=== PATIENT | female | born 1940 | race Caucasian/White ===

== ENCOUNTER 2019-04-06 00:05 | Emergency (ER) | payer MEDICARE ==
[2013-07-10 07:06] VITALS: BP 131/86
[2019-04-06 00:21] VITALS: BP 133/90
--- NOTE | 2019-04-06 13:56 | EDM.PDOC ---
ED HPI GENERAL MEDICAL PROBLEM - General Chief Complaint: General Stated Complaint: FALL/PAIN Time Seen by Provider: 04/06/19 00:25 - History of Present Illness INITIAL COMMENTS - FREE TEXT/NARRATIVE: This is a 78yo F here brought to the ER for a fall. She was found on the ground in her bedroom yelling. Per patient she was in bed and had gotten up to go to the bathroom without notifying staff and fell on her buttocks towards the right and was unable to get up. Staff came immediately as she was yelling. Onset: Sudden Duration: Minutes: Location: Reports: Other (buttocks) Quality: Reports: Ache Severity: Mild Improves with: Reports: None Worsens with: Reports: Movement Associated Symptoms: Reports: No Other Symptoms - Related Data Allergies Allergy/AdvReac Type Severity Reaction Status Date / Time fluticasone Allergy Cannot Verified 04/06/19 17:21 [From Advair Diskus] Remember orange Allergy Swollen Verified 04/06/19 17:21 Tongue salmeterol Allergy Cannot Verified 04/06/19 17:21 [From Advair Diskus] Remember morphine AdvReac Nausea and Verified 04/06/19 17:21 Vomiting Penicillins AdvReac Nausea and Verified 04/06/19 17:21 Vomiting Sulfa (Sulfonamide AdvReac Nausea Verified 04/06/19 17:21 Antibiotics) Home Meds: Home Meds Fluticasone Propionate [Flonase Allergy Relief] 1 spray NASBOTH DAILY 04/06/19 [ History] Fluticasone/Vilanterol [Breo Ellipta 100-25 MCG Inhalation Kit] 1 inh IH DAILY 04/06/19 [History] Levothyroxine 112 mcg PO ACBREAKFAST 04/06/19 [History] Lisinopril 5 mg PO DAILY 04/06/19 [History] Nystatin [Nyamyc] 1 applic TOP BID PRN 04/06/19 [History] Past Medical History HEENT History: Reports: Hard of Hearing, Impaired Vision Cardiovascular History: Reports: Heart Failure, Hypertension, SOB on Exertion Respiratory History: Reports: COPD, Pneumonia, Recurrent, SOB Gastrointestinal History: Reports: Chronic Constipation, GERD Genitourinary History: Reports: Renal Calculus, Urinary Incontinence, UTI, Recurrent 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: Musculoskeletal History: Reports: Osteoarthritis Neurological History: Reports: Alzheimers Disease, Migraines, Other (See Below) Other Neuro History: dementia Psychiatric History: Reports: Anxiety, Dementia Endocrine/Metabolic History: Reports: Hypothyroidism Other Endocrine/Metabolic History: thyroid med Hematologic History: Reports: None Immunologic History: Reports: None Oncologic (Cancer) History: Reports: None Dermatologic History: Reports: Other (See Below) Other Dermatologic History: dermatitis - Infectious Disease History Infectious Disease History: Reports: Chicken Pox - Past Surgical History Respiratory Surgical History: Reports: None GI Surgical History: Reports: Appendectomy, Cholecystectomy, Colonoscopy Female Surgical History: Reports: Hysterectomy, Tubal Ligation Neurological Surgical History: Reports: None Musculoskeletal Surgical History: Reports: Knee Replacement, Shoulder Surgery, Other (See Below) Other Musculoskeletal Surgeries/Procedures:: left ankle surgery Dermatological Surgical History: Reports: None Social & Family History - Family History Family Medical History: Noncontributory - Living Situation & Occupation Living situation: Reports: Assisted Living Occupation: Retired ED ROS GENERAL - Review of Systems Review Of Systems: ROS reveals no pertinent complaints other than HPI. ED EXAM, GENERAL - Physical Exam Exam: See Below Exam Limited By: No Limitations General Appearance: Alert, WD/WN, No Apparent Distress Eye Exam: Bilateral Eye: EOMI, PERRL Ears: Normal External Exam Nose: Normal Inspection Throat/Mouth: Normal Inspection Head: Atraumatic, Normocephalic Neck: Normal Inspection, Supple, Non-Tender Respiratory/Chest: No Respiratory Distress, Lungs Clear Cardiovascular: Normal Peripheral Pulses, Regular Rate, Rhythm Peripheral Pulses: 2+: Dorsalis Pedis (L), Dorsalis Pedis (R) GI/Abdominal: Normal Bowel Sounds Back Exam: Normal Inspection Extremities: Normal Inspection Neurological: Alert, CN II-XII Intact Skin Exam: Warm, Dry, Intact Course - Vital Signs Last Recorded V/S: Last Vital Signs Temp 36.6 C 04/06/19 00:20 Pulse 90 04/06/19 00:20 Resp 22 H 04/06/19 00:20 BP 133/90 04/06/19 00:20 Pulse Ox 97 04/06/19 00:20 Departure - Departure Time of Disposition: 01:00 Disposition: DC/Tfer to [facility] Condition: Good Clinical Impression: Fall at retirement Qualifiers: Encounter type: initial encounter Qualified Code(s): W19.XXXA - Unspecified fall, initial encounter; Y92.129 - Unspecified place in retirement as the place of occurrence of the external cause - Discharge Information Referrals: PCP,None [Primary Care Provider] - Forms: ED Department Discharge Additional Instructions: Monitor patient for any increased pain. May take Tylenol prn for pain for up to 5 days. Follow up at the clinic if pt is having increased pain. - Problem List & Annotations (1) Dementia SNOMED Code(s): 07703138 Code(s): F03.90 - UNSPECIFIED DEMENTIA WITHOUT BEHAVIORAL DISTURBANCE Status: Chronic Priority: Low Qualifiers: Dementia type: Alzheimer's disease (2) Fall at retirement SNOMED Code(s): 875132628 Code(s): W19.XXXA - UNSPECIFIED FALL, INITIAL ENCOUNTER; Y92.129 - UNSP PLACE IN DETENTION PLACE Status: Acute Priority: High Annotation/ Comment:: Full assessment and skeletal and muscular survey showing tenderness at right buttocks and bony prominence only on palpation. Patient movement at baseline with no tenderness. Reassess multiple times reaching the same assessment of tenderness with no muscular or skeletal injury. Qualifiers: Encounter type: initial encounter (3) Weakness SNOMED Code(s): 89315979 Code(s): R53.1 - WEAKNESS Status: Acute Onset Date: 03/22/16 Annotation /Comment:: 03/22/16 - 1. Weakness with hypoxia, 2. Possibly an ealry or low- grade sinus infection - Problem List Review Problem List Initiated/Reviewed/Updated: Yes - Assessment/Plan Plan: Patient to return to care center and return to ER or clinic for assessment if symptoms progress or return.
--- NOTE | 2019-04-08 14:01 | CRLCT ---
DATE OF SERVICE: 04/06/19 CLINICAL DATA: fall with low back pain and hip pain PELVIC CT: Multislice axial acquisition was performed. Axial images and sagittal and coronal reformations are reviewed. There is diffuse osteopenia. No acute fracture or dislocation. There are moderate osteoarthritic changes of both hip joints. There are degenerative changes involving the SI joints and symphysis pubis. There is degenerative disc disease at the L5-S1 level. There is a 3.3 cm oval shaped fluid density lesion in the left pelvis. The possibility of a cystic ovarian neoplasm should be considered. The patient is status post hysterectomy. There is diverticulosis of the sigmoid colon without diverticulitis. [id number] [facility]
== END 2019-04-06 00:42 ==
LOC: LB.ED 00:05
DX: M79.18 Myalgia, other site (principal); F03.90 Unspecified dementia, unspecified severity, without behavioral disturbance, psychotic disturbance, mood disturbance, and anxiety; R53.1 Weakness; I11.0 Hypertensive heart disease with heart failure; I50.9 Heart failure, unspecified; J44.9 Chronic obstructive pulmonary disease, unspecified; K21.9 Gastro-esophageal reflux disease without esophagitis; E03.9 Hypothyroidism, unspecified; W06.XXXA Fall from bed, initial encounter; Y92.129 Unspecified place in nursing home as the place of occurrence of the external cause; Z79.899 Other long term (current) drug therapy; Z88.8 Allergy status to other drugs, medicaments and biological substances; Z88.5 Allergy status to narcotic agent; Z91.048 Other nonmedicinal substance allergy status; Z88.2 Allergy status to sulfonamides; Z88.0 Allergy status to penicillin
CPT/HCPCS: 72192; 99284; 99284-25

== ENCOUNTER 2019-04-06 16:52 | Emergency (ER) | payer MEDICARE ==
[2013-07-10 07:06] VITALS: BP 131/86
[2019-04-06 17:21] VITALS: BP 133/97
--- NOTE | 2019-04-07 21:30 | EDM.PDOC ---
ED HPI GENERAL MEDICAL PROBLEM - General Chief Complaint: Respiratory Problem Stated Complaint: WEAKNESS Time Seen by Provider: 04/06/19 17:00 Source of Information: Reports: Patient History Limitations: Reports: No Limitations - History of Present Illness INITIAL COMMENTS - FREE TEXT/NARRATIVE: According to care center staff.Pt was found on the ground in her room. According to patient she uses wheelchair for ambulation. She went into her room and tried to stand up and shift herself into the bed and lost control and landed on the ground. She c/o weakness in her lower extremities and cannot bear her body weight. She does c/o both her hip hurting. According to care center staff she has fallen about 5 times in the past 1 wk. Also she has been weak in her legs for a while and she refuses to try physical therapy. Onset: Today Onset Date: 04/06/19 Location: Reports: Pelvis, Lower Extremity, Left Quality: Reports: Ache Severity: Mild Improves with: Reports: None Worsens with: Reports: None Associated Symptoms: Reports: Weakness. Denies: Confusion, Chest Pain, Cough, Diaphoresis, Fever/Chills, Headaches, Nausea/Vomiting, Rash, Seizure, Shortness of Breath, Syncope - Related Data Allergies Allergy/AdvReac Type Severity Reaction Status Date / Time fluticasone Allergy Cannot Verified 04/06/19 17:21 [From Advair Diskus] Remember orange Allergy Swollen Verified 04/06/19 17:21 Tongue salmeterol Allergy Cannot Verified 04/06/19 17:21 [From Advair Diskus] Remember morphine AdvReac Nausea and Verified 04/06/19 17:21 Vomiting Penicillins AdvReac Nausea and Verified 04/06/19 17:21 Vomiting Sulfa (Sulfonamide AdvReac Nausea Verified 04/06/19 17:21 Antibiotics) Home Meds: Home Meds Fluticasone Propionate [Flonase Allergy Relief] 1 spray NASBOTH DAILY 04/06/19 [ History] Fluticasone/Vilanterol [Breo Ellipta 100-25 MCG Inhalation Kit] 1 inh IH DAILY 04/06/19 [History] Levothyroxine 112 mcg PO ACBREAKFAST 04/06/19 [History] Lisinopril 5 mg PO DAILY 04/06/19 [History] Nystatin [Nyamyc] 1 applic TOP BID PRN 04/06/19 [History] Past Medical History HEENT History: Reports: Hard of Hearing, Impaired Vision Cardiovascular History: Reports: Heart Failure, Hypertension, SOB on Exertion Respiratory History: Reports: COPD, Pneumonia, Recurrent, SOB Gastrointestinal History: Reports: Chronic Constipation, GERD Genitourinary History: Reports: Renal Calculus, Urinary Incontinence, UTI, Recurrent 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: Musculoskeletal History: Reports: Osteoarthritis Neurological History: Reports: Alzheimers Disease, Migraines, Other (See Below) Other Neuro History: dementia Psychiatric History: Reports: Anxiety, Dementia Endocrine/Metabolic History: Reports: Hypothyroidism Other Endocrine/Metabolic History: thyroid med Hematologic History: Reports: None Immunologic History: Reports: None Oncologic (Cancer) History: Reports: None Dermatologic History: Reports: Other (See Below) Other Dermatologic History: dermatitis - Infectious Disease History Infectious Disease History: Reports: Chicken Pox - Past Surgical History Respiratory Surgical History: Reports: None GI Surgical History: Reports: Appendectomy, Cholecystectomy, Colonoscopy Female Surgical History: Reports: Hysterectomy, Tubal Ligation Neurological Surgical History: Reports: None Musculoskeletal Surgical History: Reports: Knee Replacement, Shoulder Surgery, Other (See Below) Other Musculoskeletal Surgeries/Procedures:: left ankle surgery Dermatological Surgical History: Reports: None Social & Family History - Family History Family Medical History: Noncontributory - Living Situation & Occupation Living situation: Reports: Assisted Living Occupation: Retired ED ROS GENERAL - Review of Systems Review Of Systems: See Below Constitutional: Denies: Fever, Chills HEENT: Denies: Ear Pain, Rhinitis, Throat Pain Respiratory: Denies: Shortness of Breath, Cough, Sputum Cardiovascular: Denies: Chest Pain, Lightheadedness Endocrine: Denies: Fatigue Musculoskeletal: Reports: Joint Pain, Muscle Pain Skin: Denies: Bruising, Pruritis, Rash Neurological: Reports: Weakness. Denies: Confusion, Dizziness, Headache, Numbness, Tingling, Difficulty Walking ED EXAM, GENERAL - Physical Exam Exam: See Below Exam Limited By: No Limitations General Appearance: Alert, No Apparent Distress, Obese, Other (short and obese- has truncal obesity) Eye Exam: Bilateral Eye: EOMI, PERRL Ears: Normal External Exam, Normal Canal, Hearing Grossly Normal, Normal TMs Ear Exam: Bilateral Ear: Auricle Normal, Canal Normal, TM normal Nose: Normal Inspection, Normal Mucosa, No Blood Throat/Mouth: Normal Inspection, Normal Lips, Normal Teeth, Normal Gums, Normal Oropharynx, Normal Voice, No Airway Compromise Head: Atraumatic, Normocephalic Neck: Normal Inspection, Supple, Non-Tender, Full Range of Motion Respiratory/Chest: No Respiratory Distress, Lungs Clear, Normal Breath Sounds, No Accessory Muscle Use, Chest Non-Tender Cardiovascular: Normal Peripheral Pulses, Regular Rate, Rhythm, No Edema, No Gallop, No JVD, No Murmur, No Rub Back Exam: Normal Inspection, Full Range of Motion. No: Paraspinal Tenderness, Vertebral Tenderness Extremities: Normal Inspection, Normal Range of Motion, Other (Pt is able to stnd on her lower extremities. She has good strenght in her legs and feet. She has proximal muscle weakness of pelvis.) Neurological: Alert, Oriented Course - Vital Signs Text/Narrative:: Pt has had recurrent falls. She has some tenderness over both hips. I did get Ct of the pelvis and hip to rule out any occult fracture. The CT is negative of fracture. Pt is able to weight bear and walk and change position with minimal help. My assumption is her central obesity is making her loose balance and her age too. she probably is loosing muscle mass with time. She will need to start physical therapy. I have discussed with patient and she agrees to try physical therapy. Last Recorded V/S: Last Vital Signs Temp 98.0 F 04/06/19 16:56 Pulse 87 04/06/19 16:56 Resp 20 04/06/19 16:56 BP 133/97 H 04/06/19 16:56 Pulse Ox 96 04/06/19 16:56 Departure - Departure Time of Disposition: 17:45 Disposition: Home, Self-Care 01 Condition: Fair Clinical Impression: Generalized weakness - Discharge Information *PRESCRIPTION DRUG MONITORING PROGRAM REVIEWED*: Not Applicable *COPY OF PRESCRIPTION DRUG MONITORING REPORT IN PATIENT IMELDA: Not Applicable Instructions: Fatigue, Weakness Referrals: PCP,None [Primary Care Provider] - Forms: ED Department Discharge Additional Instructions: Start working with physical therapy on Tuesday. Get help for transfers until you are feeling stronger. Use Tylenol and Motrin if you start having any pain. Remember to drink plenty of water and stay hydrated. - Problem List & Annotations (1) Weakness SNOMED Code(s): 26563599 Code(s): R53.1 - WEAKNESS Status: Acute Onset Date: 03/22/16 Annotation /Comment:: 03/22/16 - 1. Weakness with hypoxia, 2. Possibly an ealry or low- grade sinus infection - Problem List Review Problem List Initiated/Reviewed/Updated: Yes - Assessment/Plan Assessment:: Generalized weakness Plan: Pt has had recurrent falls. She has some tenderness over both hips. I did get Ct of the pelvis and hip to rule out any occult fracture. The CT is negative of fracture. Pt is able to weight bear and walk and change position with minimal help. My assumption is her central obesity is making her loose balance and her age too. she probably is loosing muscle mass with time. She will need to start physical therapy. I have discussed with patient and she agrees to try physical therapy.
== END 2019-04-06 17:45 | disposition home or self-care (01) ==
LOC: LB.ED 16:52
DX: R53.1 Weakness (principal); E03.9 Hypothyroidism, unspecified; I11.0 Hypertensive heart disease with heart failure; I50.9 Heart failure, unspecified; J44.9 Chronic obstructive pulmonary disease, unspecified; Z79.899 Other long term (current) drug therapy; Z88.8 Allergy status to other drugs, medicaments and biological substances
CPT/HCPCS: 99284

== ENCOUNTER 2019-07-05 13:27 | Emergency (ER) | payer MEDICARE ==
--- NOTE | 2019-07-05 14:27 | EDM.PDOC ---
ED HPI GENERAL MEDICAL PROBLEM - General Chief Complaint: General Stated Complaint: FALL AT HOME 07/05/19 Time Seen by Provider: 07/05/19 13:48 Source of Information: Reports: Patient, RN History Limitations: Reports: Other (short term memory disorder) - History of Present Illness INITIAL COMMENTS - FREE TEXT/NARRATIVE: [facility] resident and staff report pt was found on the floor and having left shoulder and left hip pain. No head injury. Pt states mild pain to shoulder and hip with deep palpation. Onset: Today Onset Date: 07/05/19 Location: Reports: Upper Extremity, Left, Other (left hip) Quality: Reports: Stabbing Severity: Mild Improves with: Reports: Immobilization Associated Symptoms: Reports: No Other Symptoms - Related Data Allergies Allergy/AdvReac Type Severity Reaction Status Date / Time fluticasone Allergy Cannot Verified 07/05/19 13:59 [From Advair Diskus] Remember orange Allergy Swollen Verified 07/05/19 13:59 Tongue salmeterol Allergy Cannot Verified 07/05/19 13:59 [From Advair Diskus] Remember morphine AdvReac Nausea and Verified 07/05/19 13:59 Vomiting Penicillins AdvReac Nausea and Verified 07/05/19 13:59 Vomiting Sulfa (Sulfonamide AdvReac Nausea Verified 07/05/19 13:59 Antibiotics) Home Meds: Home Meds Fluticasone Propionate [Flonase Allergy Relief] 1 spray NASBOTH DAILY 04/06/19 [ History] Fluticasone/Vilanterol [Breo Ellipta 100-25 MCG Inhalation Kit] 1 inh IH DAILY 04/06/19 [History] Levothyroxine 112 mcg PO ACBREAKFAST 04/06/19 [History] Lisinopril 5 mg PO DAILY 04/06/19 [History] Nystatin [Nyamyc] 1 applic TOP BID PRN 04/06/19 [History] Past Medical History HEENT History: Reports: Hard of Hearing, Impaired Vision Cardiovascular History: Reports: Heart Failure, Hypertension, SOB on Exertion Respiratory History: Reports: COPD, Pneumonia, Recurrent, SOB Gastrointestinal History: Reports: Chronic Constipation, GERD Genitourinary History: Reports: Renal Calculus, Urinary Incontinence, UTI, Recurrent 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: Musculoskeletal History: Reports: Osteoarthritis Neurological History: Reports: Alzheimers Disease, Migraines, Other (See Below) Other Neuro History: dementia Psychiatric History: Reports: Anxiety, Dementia Endocrine/Metabolic History: Reports: Hypothyroidism Other Endocrine/Metabolic History: thyroid med Hematologic History: Reports: None Immunologic History: Reports: None Oncologic (Cancer) History: Reports: None Dermatologic History: Reports: Other (See Below) Other Dermatologic History: dermatitis - Infectious Disease History Infectious Disease History: Reports: Chicken Pox - Past Surgical History Respiratory Surgical History: Reports: None GI Surgical History: Reports: Appendectomy, Cholecystectomy, Colonoscopy Female Surgical History: Reports: Hysterectomy, Tubal Ligation Neurological Surgical History: Reports: None Musculoskeletal Surgical History: Reports: Knee Replacement, Shoulder Surgery, Other (See Below) Other Musculoskeletal Surgeries/Procedures:: left ankle surgery Dermatological Surgical History: Reports: None Social & Family History - Family History Family Medical History: Noncontributory - Living Situation & Occupation Living situation: Reports: Assisted Living Occupation: Retired ED ROS GENERAL - Review of Systems Review Of Systems: See Below Constitutional: Denies: Fever, Chills HEENT: Denies: Other (no head injury) Respiratory: Denies: Shortness of Breath, Cough Cardiovascular: Reports: No Symptoms GI/Abdominal: Reports: No Symptoms Musculoskeletal: Reports: Shoulder Pain, Other (left hip pain) Skin: Reports: No Symptoms Neurological: Reports: Confusion ED EXAM, GENERAL - Physical Exam Exam: See Below Exam Limited By: Other (limited short term memory) General Appearance: Alert, No Apparent Distress Ears: Normal External Exam, Hearing Grossly Normal Ear Exam: Bilateral Ear: Auricle Normal, Canal Normal Nose: Normal Inspection Throat/Mouth: Normal Voice, No Airway Compromise Head: Atraumatic, Normocephalic Neck: Supple, Non-Tender, Full Range of Motion Respiratory/Chest: Lungs Clear, Normal Breath Sounds Cardiovascular: Regular Rate, Rhythm, No Edema GI/Abdominal: Normal Bowel Sounds, Soft, Non-Tender Extremities: Other (Mild pain to left shoulder and left hip with palpation, no pain while lying on ER cot.) Neurological: Alert, Oriented Psychiatric: Normal Affect, Normal Mood Course - Orders/Labs/Meds Orders: Active Orders 24 hr Category Date Time Status Hip Min 1V w Pelvis Lt [CR] Stat Exams 07/05/19 13:55 Taken Shoulder Comp Lt [CR] Stat Exams 07/05/19 13:55 Taken - Re-Assessments/Exams Free Text/Narrative Re-Assessment/Exam: 07/05/19 15:16 LE X-ray completed of left shoulder and left hip. Radiology read is pending. No acute dislocated fracture or dislocations noted. Departure - Departure Time of Disposition: 14:47 Disposition: Home, Self-Care 01 Condition: Good Clinical Impression: Left hip pain, Left shoulder pain Fall at [facility] Qualifiers: Encounter type: initial encounter Qualified Code(s): W19.XXXA - Unspecified fall, initial encounter - Discharge Information *PRESCRIPTION DRUG MONITORING PROGRAM REVIEWED*: Not Applicable *COPY OF PRESCRIPTION DRUG MONITORING REPORT IN PATIENT IMELDA: Not Applicable Referrals: PCP,None [Primary Care Provider] - Forms: ED Department Discharge Additional Instructions: Apply warm packs to L hip and shoulder every 4 hours for 20 minutes as needed for pain. - My Orders Last 24 Hours: My Active Orders 07/05/19 13:55 Hip Min 1V w Pelvis Lt [CR] Stat Shoulder Comp Lt [CR] Stat - Assessment/Plan Last 24 Hours: My Active Orders 07/05/19 13:55 Hip Min 1V w Pelvis Lt [CR] Stat Shoulder Comp Lt [CR] Stat Plan: fall at [facility] in [facility] room, x-ray completed and radiologist read is pending. No acute dislocation or dislocated fracture noted. Recommend rest, heat to area q 4 hour prn. Notify provider if pain worsens. May use Tylenol 650 mg PO qid as needed X 5 days.
--- NOTE | 2019-07-05 15:35 | CR ---
DATE OF SERVICE: 07/05/2019 CLINICAL DATA: Fall Pelvis and left hip: There is diffuse osteopenia. No acute fracture or dislocation. No lytic or blastic bone lesions. There are moderate osteoarthritic changes or both hip joints. Thank you for allowing us to participate in the care of your patient. Dictated and Authenticated by: Jamir Duncan MD 07/05/2019 3:11 PM Central Time ([place] & [place]) [place]
--- NOTE | 2019-07-05 15:38 | CR ---
DATE OF SERVICE: 07/05/2019 CLINICAL DATA: Fall Left Shoulder: No priors. There is diffuse osteopenia. There are osteoarthritic changes at the a.c. and glenohumeral joints. Ther is narrowing of the subacromial space suggesting a chronic rotator cuff injury. No acute fracture or dislocation. Thank you for allowing us to participate in the care of you patient. Dictated and Authenticated by: Jamir Duncan MD 07/05/2019 3:12 PM Central Time ([place] & [place]) [place]
== END 2019-07-05 14:47 | disposition home or self-care (01) ==
LOC: LB.ED 13:27
DX: M25.512 Pain in left shoulder (principal); M25.552 Pain in left hip; I11.0 Hypertensive heart disease with heart failure; I50.9 Heart failure, unspecified; J44.9 Chronic obstructive pulmonary disease, unspecified; E03.9 Hypothyroidism, unspecified; Z88.0 Allergy status to penicillin; Z88.1 Allergy status to other antibiotic agents; Z88.5 Allergy status to narcotic agent; Z91.018 Allergy to other foods; Z88.8 Allergy status to other drugs, medicaments and biological substances; Z88.2 Allergy status to sulfonamides; Z79.899 Other long term (current) drug therapy
CPT/HCPCS: 73030-LT; 73501-LT; 99283-25

== ENCOUNTER 2019-07-15 15:31 | Emergency (ER) | payer MEDICARE ==
[2019-07-15] MEDS ORDERED: Ibuprofen 400 MG Tab ONE (15:40)
--- NOTE | 2019-07-15 15:44 | EDM.PDOC ---
ED HPI GENERAL MEDICAL PROBLEM - General Chief Complaint: General Stated Complaint: fall Time Seen by Provider: 07/15/19 15:35 Source of Information: Reports: Patient, Other (Care center staff) History Limitations: Reports: No Limitations - History of Present Illness INITIAL COMMENTS - FREE TEXT/NARRATIVE: Pt was in the bathroom and was trying to shift to the commode and lost strength her leg and fell hurt her left hip and left shoulder. Happened just prior to arrival. Pt c/o pain in her shoulder , but does move her left arm. She can bear weight on her left hip, but c/o pain in her hip. Onset: Today Onset Date: 07/15/19 Onset Time: 15:25 Duration: Constant Location: Reports: Upper Extremity, Left, Lower Extremity, Left Quality: Reports: Ache Severity: Mild Improves with: Reports: None Worsens with: Reports: Movement Associated Symptoms: Denies: Confusion, Chest Pain, Cough, Diaphoresis, Fever/ Chills, Headaches, Loss of Appetite, Nausea/Vomiting, Rash, Seizure, Syncope, Weakness - Related Data Allergies Allergy/AdvReac Type Severity Reaction Status Date / Time fluticasone Allergy Cannot Verified 07/05/19 13:59 [From Advair Diskus] Remember orange Allergy Swollen Verified 07/05/19 13:59 Tongue salmeterol Allergy Cannot Verified 07/05/19 13:59 [From Advair Diskus] Remember morphine AdvReac Nausea and Verified 07/05/19 13:59 Vomiting Penicillins AdvReac Nausea and Verified 07/05/19 13:59 Vomiting Sulfa (Sulfonamide AdvReac Nausea Verified 07/05/19 13:59 Antibiotics) Home Meds: Home Meds Fluticasone Propionate [Flonase Allergy Relief] 1 spray NASBOTH DAILY 04/06/19 [ History] Fluticasone/Vilanterol [Breo Ellipta 100-25 MCG Inhalation Kit] 1 inh IH DAILY 04/06/19 [History] Levothyroxine 112 mcg PO ACBREAKFAST 04/06/19 [History] Lisinopril 5 mg PO DAILY 04/06/19 [History] Nystatin [Nyamyc] 1 applic TOP BID PRN 04/06/19 [History] Past Medical History HEENT History: Reports: Hard of Hearing, Impaired Vision Cardiovascular History: Reports: Heart Failure, Hypertension, SOB on Exertion Respiratory History: Reports: COPD, Pneumonia, Recurrent, SOB Gastrointestinal History: Reports: Chronic Constipation, GERD Genitourinary History: Reports: Renal Calculus, Urinary Incontinence, UTI, Recurrent 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: Musculoskeletal History: Reports: Osteoarthritis Neurological History: Reports: Alzheimers Disease, Migraines, Other (See Below) Other Neuro History: dementia Psychiatric History: Reports: Anxiety, Dementia Endocrine/Metabolic History: Reports: Hypothyroidism Other Endocrine/Metabolic History: thyroid med Hematologic History: Reports: None Immunologic History: Reports: None Oncologic (Cancer) History: Reports: None Dermatologic History: Reports: Other (See Below) Other Dermatologic History: dermatitis - Infectious Disease History Infectious Disease History: Reports: Chicken Pox - Past Surgical History Respiratory Surgical History: Reports: None GI Surgical History: Reports: Appendectomy, Cholecystectomy, Colonoscopy Female Surgical History: Reports: Hysterectomy, Tubal Ligation Neurological Surgical History: Reports: None Musculoskeletal Surgical History: Reports: Knee Replacement, Shoulder Surgery, Other (See Below) Other Musculoskeletal Surgeries/Procedures:: left ankle surgery Dermatological Surgical History: Reports: None Social & Family History - Family History Family Medical History: Noncontributory - Living Situation & Occupation Living situation: Reports: Assisted Living Occupation: Retired ED ROS GENERAL - Review of Systems Review Of Systems: See Below Constitutional: Denies: Fever, Chills HEENT: Denies: Rhinitis, Throat Pain Respiratory: Denies: Cough, Sputum Cardiovascular: Denies: Chest Pain, Lightheadedness GI/Abdominal: Denies: Abdominal Pain, Nausea, Vomiting Musculoskeletal: Reports: Shoulder Pain, Muscle Pain. Denies: Back Pain, Joint Pain, Joint Swelling Skin: Denies: Bruising, Pruritis, Rash, Wound ED EXAM, GENERAL - Physical Exam Exam: See Below Exam Limited By: No Limitations General Appearance: Alert, WD/WN, Mild Distress Eye Exam: Bilateral Eye: EOMI, PERRL Ears: Normal External Exam, Normal Canal, Hearing Grossly Normal, Normal TMs Ear Exam: Bilateral Ear: Auricle Normal, Canal Normal, TM normal Nose: Normal Inspection, Normal Mucosa, No Blood Throat/Mouth: Normal Inspection, Normal Lips, Normal Teeth, Normal Gums, Normal Oropharynx, Normal Voice, No Airway Compromise Head: Atraumatic, Normocephalic Neck: Normal Inspection, Supple, Non-Tender, Full Range of Motion Respiratory/Chest: No Respiratory Distress, Lungs Clear, Normal Breath Sounds, No Accessory Muscle Use, Chest Non-Tender Cardiovascular: Normal Peripheral Pulses, Regular Rate, Rhythm, No Edema, No Gallop, No JVD, No Murmur, No Rub Extremities: Normal Inspection, Normal Range of Motion, No Pedal Edema, Normal Capillary Refill, Other (Left lower extremity: There is no obvious swelling or deformity around the hip or leg. No brusising. Pt is able to stand on her feet, but c/o pain in her left hip when she stand. She can flex her thigh. Tender over the lateral aspect o the hip . Left upper extremity: no deormity or swelling. She does have good ROM around the shoulder. tender over the shoulder tip to palpation. no crepitus.) Course - Vital Signs Text/Narrative:: Pt's X-ray of the left hip and left shoulder appear normal. No concerns of fracture or dislocation. She has soft tissue injury to the hip and shoulder. advised cold compresses 2-3 times today followed by warm compresses from tomorrow.Motrin 400mg 3 times daily with food for pain.She should be okay to walk and transfer with assistance. - Orders/Labs/Meds Orders: Active Orders 24 hr Category Date Time Status Hip Min 2V or 3V Lt [CR] Stat Exams 07/15/19 15:37 Ordered Shoulder Comp Lt [CR] Stat Exams 07/15/19 15:36 Ordered Departure - Departure Time of Disposition: 16:15 Disposition: DC/Tfer to [facility] Condition: Fair Clinical Impression: Left hip pain, Left shoulder pain - Discharge Information *PRESCRIPTION DRUG MONITORING PROGRAM REVIEWED*: Not Applicable *COPY OF PRESCRIPTION DRUG MONITORING REPORT IN PATIENT IMELDA: Not Applicable Forms: ED Department Discharge Additional Instructions: Pt's X-ray of the left hip and left shoulder appear normal. No concerns of fracture or dislocation. She has soft tissue injury to the hip and shoulder. advised cold compresses 2-3 times today followed by warm compresses from tomorrow.Motrin 400mg 3 times daily with food for pain.She should be okay to walk and transfer with assistance. - Problem List & Annotations (1) [facility] Code(s): 639389214 Code(s): W19.XXXA - UNSPECIFIED FALL, INITIAL ENCOUNTER; Y92.129 - UNSP PLACE IN LONG TERM PLACE Status: Acute Priority: High Annotation/ Comment:: Full assessment and skeletal and muscular survey showing tenderness at right buttocks and bony prominence only on palpation. Patient movement at baseline with no tenderness. Reassess multiple times reaching the same assessment of tenderness with no muscular or skeletal injury. Qualifiers: Encounter type: initial encounter Qualified Code(s): W19.XXXA - Unspecified fall, initial encounter; Y92.129 - Unspecified place in [facility] as the place of occurrence of the external cause (2) Left hip pain SNOMED Code(s): 57551387 Code(s): M25.552 - PAIN IN LEFT HIP Status: Acute (3) Left shoulder pain SNOMED Code(s): 46566388, 68223899 Code(s): M25.512 - PAIN IN LEFT SHOULDER Status: Acute - Problem List Review Problem List Initiated/Reviewed/Updated: Yes - My Orders Last 24 Hours: My Active Orders 07/15/19 15:36 Shoulder Comp Lt [CR] Stat 07/15/19 15:37 Hip Min 2V or 3V Lt [CR] Stat - Assessment/Plan Last 24 Hours: My Active Orders 07/15/19 15:36 Shoulder Comp Lt [CR] Stat 07/15/19 15:37 Hip Min 2V or 3V Lt [CR] Stat Assessment:: Left hip and shoulder pain s/p fall Plan: Pt's X-ray of the left hip and left shoulder appear normal. No concerns of fracture or dislocation. She has soft tissue injury to the hip and shoulder. advised cold compresses 2-3 times today followed by warm compresses from tomorrow.Motrin 400mg 3 times daily with food for pain.She should be okay to walk and transfer with assistance.
[2019-07-15 17:34] VITALS: BP 130/100; PULSE 80
--- NOTE | 2019-07-15 18:08 | CR ---
DATE OF SERVICE: 07/15/19 CLINICAL DATA: fall with left hip pain LEFT HIP: There is mild osteoarthritic change of the left hip joint. No acute fracture or dislocation. No lytic or blastic bone lesions. [id number] MTDD
--- NOTE | 2019-07-15 18:10 | CR ---
DATE OF SERVICE: 07/15/19 CLINICAL DATA: shoulder pain LEFT SHOULDER: There is diffuse osteopenia. There are osteoarthritic changes of the AC and glenohumeral joints. No acute abnormalities. [id number] MTDD
== END 2019-07-15 16:15 ==
LOC: LB.ED 15:31
DX: M25.512 Pain in left shoulder (principal); M25.552 Pain in left hip; I11.0 Hypertensive heart disease with heart failure; I50.9 Heart failure, unspecified; E03.9 Hypothyroidism, unspecified; Z88.2 Allergy status to sulfonamides; Z88.5 Allergy status to narcotic agent; Z88.8 Allergy status to other drugs, medicaments and biological substances; Z91.018 Allergy to other foods; Z88.0 Allergy status to penicillin; Z79.899 Other long term (current) drug therapy
CPT/HCPCS: 73030-LT; 73502-LT; 99282; 99284; A9270-GY

== ENCOUNTER 2019-09-27 15:39 | Emergency (ER) | payer MEDICARE ==
[2019-09-27 15:57] VITALS: BP 157/113; PULSE 110
--- NOTE | 2019-09-27 23:11 | ER ---
REASON FOR EMERGENCY ROOM VISIT: Hematoma, left forehead. HISTORY: This 79-year-old intermediate resident was sent over after she apparently slipped off her chair and struck her left forehead on the floor sustaining a hematoma. She was sent over for evaluation. She denies any loss of consciousness. Has not had any visual changes. Denies any numbness, weakness, or paralysis. She has not had any nausea. She states that it hurts over the area of the hematoma when she touches it. PAST MEDICAL HISTORY: Reviewed. See EMR. MEDICATIONS: Reviewed. See EMR. ALLERGIES: REVIEWED. SEE EMR. REVIEW OF SYSTEMS: Pertinent positives and negatives as noted in the HPI. PHYSICAL EXAMINATION: GENERAL: She is alert, appropriate, and in no acute distress. VITAL SIGNS: She is afebrile, heart rate is 110, blood pressure is 157/113, and O2 sats 93% to 94%. She is afebrile. HEENT: She has an egg-shaped hematoma that measures about approximately 5 x 3 cm over her left forehead area just below her hairline. There is no palpable bony crepitus. It is somewhat tender to touch as one might imagine. TMs are normal. Oropharynx is normal. Pupils equal, round, and reactive to light. Extraocular muscles intact. Occlusion is normal. NEUROLOGIC: Cranial nerves 2 through 12 are intact. Deep tendon reflexes symmetrical. Muscle strength, bulk, and tone are normal and symmetrical. Sensory examination normal to touch. Gait and station are not tested. IMPRESSION: Hematoma, left forehead area, subcutaneous. No evidence of traumatic brain injury at this time. PLAN: She will be returning to the intermediate. They can apply ice to it to minimize the swelling and to help with pain relief. Also, ibuprofen and Tylenol as needed can be given. If they notice any changes in her neurologic status or there are any questions or concerns, they should send her back to us for another evaluation. The patient understands and agrees. All questions were answered. MARIELENA /[id number]
== END 2019-09-27 16:15 | disposition home or self-care (01) ==
LOC: LB.ED 15:39
DX: S00.83XA Contusion of other part of head, initial encounter (principal); W07.XXXA Fall from chair, initial encounter; W22.8XXA Striking against or struck by other objects, initial encounter
CPT/HCPCS: 99283

== ENCOUNTER 2019-12-09 13:21 | Emergency (ER) | payer MEDICARE ==
[~2019-12-09 13:21] MED LIST: Albuterol 0.083% 2.5 MG/3 ML Neb Soln ONE; Azithromycin 250 MG Tab ONE
[2019-12-09 13:29] VITALS: BP 137/90; PULSE 103
--- NOTE | 2019-12-09 19:14 | ER ---
REASON FOR EMERGENCY ROOM VISIT: Congestion and wheezing. HISTORY: This 79-year-old resident of the assisted here was sent over by the assisted staff because they noticed that she had what appeared to be some increased respiratory congestion and some wheezing on examination. She has not been coughing excessively according to the patient and she does have a history of COPD, which dates back several years ago. Her COPD is said to be severe, but she is not on systemic steroids for this. She has not been febrile as of late. The patient states that she feels well at this time. She indicates that her respiratory symptoms are essentially chronic and have been unchanged for quite some time. The patient denies any shortness of breath at this time and her appetite has been good. In fact, she is complaining about being hungry at this time. PAST MEDICAL HISTORY: 1. COPD, severe. 2. Anxiety. 3. Hypothyroidism. 4. History of congestive heart failure. 5. Anxiety. 6. History of pneumonia. 7. Weakness. 8. History of hypoxia. 9. Dementia. 10.History of multiple falls. MEDICATIONS: Reviewed. Please see electronic medical record. She is on Flonase nasal spray and inhaler consisting of fluticasone and vilanterol. Other medications are as listed in her EMR and these were reviewed. ALLERGIES: FLUTICASONE, ORANGE, SALMETEROL, MORPHINE, AND PENICILLIN. REVIEW OF SYSTEMS: Pertinent positives and negatives as listed in the HPI. PHYSICAL EXAMINATION: GENERAL: She is reasonably alert and in no acute distress. VITAL SIGNS: She is afebrile, heart rate is 103, blood pressure 137/90, respiratory rate is 22, O2 sats 92% on room air. HEENT: Oropharynx is normal. No conjunctivitis is noted. NECK: No JVD. No adenopathy. CHEST: She does have rare scattered rhonchi on the left side, but I was unable to hear any real wheezing at this time. CARDIAC: Regular rate without murmur. ABDOMEN: Soft and nontender. EXTREMITIES: No cyanosis. IMPRESSION: Early acute exacerbation of chronic obstructive pulmonary disease. PLAN: I ordered DuoNeb inhalers on a p.r.n. basis should the nurses feel it might be helpful. In addition to this, I started her on a Z-Kevin. This was explained to the patient and in spite of her dementia, she seems to understand. She will be returning to the assisted. FRANKIE/LOUANN /[id number]
== END 2019-12-09 14:10 ==
LOC: LB.ED 13:21
DX: J44.1 Chronic obstructive pulmonary disease with (acute) exacerbation (principal); Z88.8 Allergy status to other drugs, medicaments and biological substances; Z88.0 Allergy status to penicillin; Z91.018 Allergy to other foods
CPT/HCPCS: 99284; A9270-GY

== ENCOUNTER 2020-09-05 09:20 | Emergency (ER) | payer MEDICARE ==
[2020-09-05] MEDS ORDERED: Sodium Chloride 0.9% 1,000 ML IV SCH (10:00)
[2020-09-05 10:24] VITALS: BP 134/105; PULSE 80
--- NOTE | 2020-09-05 11:00 | EDM.PDOC ---
ED HPI GENERAL MEDICAL PROBLEM - General Chief Complaint: General Stated Complaint: WEAKNESS Time Seen by Provider: 09/05/20 09:30 Source of Information: Reports: Patient, Skilled Nursing Records - History of Present Illness INITIAL COMMENTS - FREE TEXT/NARRATIVE: Patient is an 80 y/o female who presents with generalized weakness from the senior living. COVID yesterday was negative. She doesn't complain of anything and just wants to be left alone. No fever, abd pain, N/V/D, chest pain, or shortness of breath. Patient with baseline weakness needing assist and dementia. Generalized Pain Score (Numeric/FACES): 4 - Related Data Allergies Allergy/AdvReac Type Severity Reaction Status Date / Time fluticasone Allergy Cannot Verified 12/09/19 15:59 [From Advair Diskus] Remember orange Allergy Swollen Verified 12/09/19 15:59 Tongue salmeterol Allergy Cannot Verified 12/09/19 15:59 [From Advair Diskus] Remember morphine AdvReac Nausea and Verified 12/09/19 15:59 Vomiting Penicillins AdvReac Nausea and Verified 12/09/19 15:59 Vomiting Sulfa (Sulfonamide AdvReac Nausea Verified 12/09/19 15:59 Antibiotics) Home Meds: Home Meds Fluticasone Propionate [Flonase Allergy Relief] 1 spray NASBOTH DAILY 04/06/19 [History] Fluticasone/Vilanterol [Breo Ellipta 100-25 MCG Inhalation Kit] 1 inh IH DAILY 04/06/19 [History] Lisinopril 5 mg PO DAILY 04/06/19 [History] Calcium Carbonate [Tums] 500 mg PO DAILY 12/09/19 [History] Cholecalciferol (Vitamin D3) [Vitamin D3] 2,000 units PO DAILY 12/09/19 [History] Guaifenesin/Pseudoephedrne HCl [Mucinex D ER 600-60 mg Tablet] 600 mg PO DAILY 12/09/19 [History] Levothyroxine Sodium [Levo-T] 100 mcg PO DAILY 12/09/19 [History] Nystatin 1 applic TD BID 12/09/19 [History] Topiramate 12.5 mg PO BEDTIME 12/09/19 [History] Past Medical History HEENT History: Reports: Hard of Hearing, Impaired Vision Cardiovascular History: Reports: Heart Failure, Hypertension, SOB on Exertion Respiratory History: Reports: COPD, Pneumonia, Recurrent, SOB Gastrointestinal History: Reports: Chronic Constipation, GERD Genitourinary History: Reports: Renal Calculus, Urinary Incontinence, UTI, Recurrent 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: Musculoskeletal History: Reports: Osteoarthritis Neurological History: Reports: Alzheimers Disease, Migraines, Other (See Below) Other Neuro History: dementia Psychiatric History: Reports: Anxiety, Dementia Endocrine/Metabolic History: Reports: Hypothyroidism Other Endocrine/Metabolic History: thyroid med Hematologic History: Reports: None Immunologic History: Reports: None Oncologic (Cancer) History: Reports: None Dermatologic History: Reports: Other (See Below) Other Dermatologic History: dermatitis - Infectious Disease History Infectious Disease History: Reports: Chicken Pox - Past Surgical History HEENT Surgical History: Reports: Other (See Below) Respiratory Surgical History: Reports: None GI Surgical History: Reports: Appendectomy, Cholecystectomy, Colonoscopy Female Surgical History: Reports: Hysterectomy, Tubal Ligation Neurological Surgical History: Reports: None Musculoskeletal Surgical History: Reports: Knee Replacement, Shoulder Surgery, Other (See Below) Other Musculoskeletal Surgeries/Procedures:: left ankle surgery Dermatological Surgical History: Reports: None Social & Family History - Family History Family Medical History: No Pertinent Family History - Tobacco Use Tobacco Use Status *Q: Former Tobacco User Used Tobacco, but Quit: Yes Month/Year Tobacco Last Used: 2009 - Caffeine Use Caffeine Use: Reports: Coffee - Recreational Drug Use Recreational Drug Use: No - Living Situation & Occupation Living situation: Reports: Assisted Living Occupation: Retired ED ROS GENERAL - Review of Systems Review Of Systems: See Below Constitutional: Reports: Weakness HEENT: Reports: No Symptoms Respiratory: Reports: No Symptoms Cardiovascular: Reports: No Symptoms GI/Abdominal: Reports: No Symptoms Musculoskeletal: Reports: No Symptoms Skin: Reports: No Symptoms Neurological: Reports: No Symptoms ED EXAM, GENERAL - Physical Exam Exam: See Below Exam Limited By: Other (Patient is a bit combative when being moved for CXR, but I was told by nursing that this is normal behavior) General Appearance: Alert, No Apparent Distress Throat/Mouth: Normal Voice, Other (tongue and lips are dry) Neck: Normal Inspection, Supple, Non-Tender Respiratory/Chest: No Respiratory Distress, Lungs Clear, Normal Breath Sounds, No Accessory Muscle Use, Chest Non-Tender Cardiovascular: Normal Peripheral Pulses, Regular Rate, Rhythm, No Edema, No Murmur GI/Abdominal: Normal Bowel Sounds, Soft, Non-Tender, No Distention Extremities: Normal Inspection, Normal Range of Motion, No Pedal Edema, Normal Capillary Refill Neurological: Alert, Oriented Psychiatric: Normal Affect Skin Exam: Warm, Dry, Intact, Normal Color, No Rash, Other (patient appears dehydrated) Course - Vital Signs Text/Narrative:: Lab work hemolyzed, but CBC and lactic were normal. Patient refusing anymore lab work and urine. She states she just wants to go home. Discussed with daughter and she stated that patient has made comments about just wanting to and will see her today in the Care Center. 1 L NS given to patient, which perked her up and her tongue and lips were moist. Last Recorded V/S: Last Vital Signs Temp 36.2 C 09/05/20 09:30 Pulse 80 09/05/20 09:30 Resp 20 09/05/20 09:30 BP 134/105 H 09/05/20 09:30 Pulse Ox 98 09/05/20 09:30 - Orders/Labs/Meds Orders: Active Orders 24 hr Category Date Time Status Chest 1V Frontal [CR] Stat Exams 09/05/20 09:51 Taken COMPREHENSIVE METABOLIC PN,CMP [CHEM] Stat Lab 09/05/20 09:51 Ordered TSH ULTRASENSITIVE [CHEM] Stat Lab 09/05/20 09:52 Ordered UA RFX SERAFIN AND CULT IF INDIC [URIN] Stat Lab 09/05/20 09:51 Ordered Sodium Chloride 0.9% [Normal Saline] 1,000 ml Med 09/05/20 10:00 Active IV ASDIRECTED Medication Orders Sodium Chloride (Normal Saline) 1,000 mls @ 1,000 mls/hr IV ASDIRECTED VIRY Last Admin: 09/05/20 09:47 Dose: 1,000 mls/hr Documented by: LARISA Labs: Laboratory Tests 09/05/20 09/05/20 Range/Units 09:40 09:51 WBC 8.7 D (4.0-11.0) K/uL RBC 5.02 (3.80-5.80) M/uL Hgb 15.0 (11.5-16.5) g/dL Hct 47.0 (37.0-47.0) % MCV 94 (76-96) fL MCH 29.9 (27.0-32.0) pg MCHC 31.9 (31.0-35.0) g/dL RDW 13.1 (11.0-16.0) % Plt Count 224 (150-500) K/uL MPV 10.0 (6.0-10.0) fL Neut % (Auto) 75.5 H (45.0-70.0) % Lymph % (Auto) 16.5 L (20.0-40.0) % [place] % (Auto) 6.3 (3.0-10.0) % Eos % (Auto) 1.4 (1.0-5.0) % Baso % (Auto) 0.3 (0.0-0.5) % Neut # (Auto) 6.55 (2.00-7.50) K/uL Lymph # (Auto) 1.43 L (1.50-4.00) K/uL [place] # (Auto) 0.55 (0.20-0.80) K/uL Eos # (Auto) 0.12 (0.04-0.40) K/uL Baso # (Auto) 0.03 (0.02-0.10) K/uL Lactic Acid 1.1 (0.4-2.0) mmol/L Meds: Medications Generic Name Dose Route Start Last Admin Trade Name Freq PRN Reason Stop Dose Admin Sodium Chloride 1,000 mls @ 1,000 mls/hr 09/05/20 10:00 09/05/20 09:47 Normal Saline IV 1,000 mls/hr ASDIRECTED VIRY Administration Departure - Departure Time of Disposition: 11:00 Disposition: DC/Tfer to [facility] 03 Condition: Good Clinical Impression: Dehydration - Discharge Information *PRESCRIPTION DRUG MONITORING PROGRAM REVIEWED*: Not Applicable *COPY OF PRESCRIPTION DRUG MONITORING REPORT IN PATIENT IMELDA: Not Applicable Referrals: PCP,None [Primary Care Provider] - Additional Instructions: Verbal order for a one time ativan 1 mg PO prn for agitation. Sepsis Event Note (ED) - Evaluation Sepsis Screening Result: No Definite Risk - Focused Exam Vital Signs: Vital Signs Temp Pulse Resp BP Pulse Ox 09/05/20 09:30 36.2 C 80 20 134/105 H 98 - My Orders Last 24 Hours: My Active Orders 09/05/20 09:51 Chest 1V Frontal [CR] Stat COMPREHENSIVE METABOLIC PN,CMP [CHEM] Stat UA RFX SERAFIN AND CULT IF INDIC [URIN] Stat 09/05/20 09:52 TSH ULTRASENSITIVE [CHEM] Stat 09/05/20 10:00 Sodium Chloride 0.9% [Normal Saline] 1,000 ml IV ASDIRECTED - Assessment/Plan Last 24 Hours: My Active Orders 09/05/20 09:51 Chest 1V Frontal [CR] Stat COMPREHENSIVE METABOLIC PN,CMP [CHEM] Stat UA RFX SERAFIN AND CULT IF INDIC [URIN] Stat 09/05/20 09:52 TSH ULTRASENSITIVE [CHEM] Stat 09/05/20 10:00 Sodium Chloride 0.9% [Normal Saline] 1,000 ml IV ASDIRECTED
--- NOTE | 2020-09-05 14:20 | CR ---
CLINICAL DATA: Weakness. AP CHEST, 05 SEPTEMBER 2020: Comparison is made to a prior exam dated 05 April 2019. The patient is in an apical lordotic position and rotated to the left. The heart size is within normal limits. There is calcification of the aortic arch. The pulmonary vasculature does appear more prominent on this exam with some cephalization of flow suggesting mild pulmonary venous congestion. The lungs are clear. No pneumothorax. No pleural effusions. Job: [id number] MTDD
== END 2020-09-05 10:50 | disposition home or self-care (01) ==
LOC: LB.ED 09:20
DX: E86.0 Dehydration (principal); I11.0 Hypertensive heart disease with heart failure; I50.9 Heart failure, unspecified; J44.9 Chronic obstructive pulmonary disease, unspecified; G30.9 Alzheimer's disease, unspecified; F02.80 Dementia in other diseases classified elsewhere, unspecified severity, without behavioral disturbance, psychotic disturbance, mood disturbance, and anxiety; E03.9 Hypothyroidism, unspecified; Z79.899 Other long term (current) drug therapy; Z88.8 Allergy status to other drugs, medicaments and biological substances; Z91.018 Allergy to other foods; Z88.5 Allergy status to narcotic agent; Z88.0 Allergy status to penicillin; Z88.2 Allergy status to sulfonamides; Z87.891 Personal history of nicotine dependence
CPT/HCPCS: 36415; 71045; 83605; 85025; 99285-25; J7030

== ENCOUNTER 2021-04-11 15:15 | Observation (INO) | payer MEDICARE ==
[2021-04-11] MEDS ORDERED: POLYETHYLENE GLYCOL PO PRN (17:25)
[2021-04-11] MEDS ORDERED: GLYCERIN RC PRN (17:25)
[2021-04-11] MEDS ORDERED: BISACODYL 10 MG RC PRN (17:25)
[2021-04-11] MEDS ORDERED: cefTRIAXone 1 GM in Sodium Chloride 0.9% 50 ML IV SCH (17:30)
[2021-04-11] MEDS ORDERED: Sodium Chloride 0.9% 10 ML Syringe FLUSH PRN (17:30)
[2021-04-11] MEDS ORDERED: Sodium Chloride 0.9% 1,000 ML IV SCH ×2 (17:45→20:00)
[2021-04-11] MEDS ORDERED: Enoxaparin 60 MG/0.6 ML Syringe SUBCUT ONE (19:49)
[2021-04-11] MEDS ORDERED: Haloperidol Lactate 5 MG/ML SDV IVPUSH PRN (19:50)
[2021-04-11] MEDS ORDERED: TOPIRAMATE 25 MG PO SCH (20:00)
--- NOTE | 2021-04-11 20:03 | PCM.HP.2 ---
H&P History of Present Illness - General Date of Service: 04/11/21 Admit Problem/Dx: Admission Diagnosis/Problem Admission Diagnosis/Problem Pneumonia - History of Present Illness Initial Comments - Free Text/Narative: Oliver Reyes Hospitalist ADMISSION SUPPORT NOTE eHospitalist was contacted by Emory Villatoro with request of admission support. Chief complaint: Malaise HPI: The history is taken from the ED provider as the patient is unable to assist with history gathering given the fact that she has dementia and is currently combative. Most of my history has been obtained from reviewing the EM R and discussion with the ED provider. Home Medications: Reviewed see EMR for details Pertinent Medical History: COPD, CHF, dementia, hypertension, hypothyroidism Pertinent Social History resides in a fpc - Related Data Allergies/Adverse Reactions: Allergies Allergy/AdvReac Type Severity Reaction Status Date / Time fluticasone Allergy Cannot Verified 09/05/20 11:34 [From Advair Diskus] Remember orange Allergy Swollen Verified 09/05/20 11:34 Tongue salmeterol Allergy Cannot Verified 09/05/20 11:34 [From Advair Diskus] Remember morphine AdvReac Nausea and Verified 09/05/20 11:34 Vomiting Penicillins AdvReac Nausea and Verified 09/05/20 11:34 Vomiting Sulfa (Sulfonamide AdvReac Nausea Verified 09/05/20 11:34 Antibiotics) Home Medications: Home Meds Fluticasone/Vilanterol [Breo Ellipta 100-25 MCG Inhalation Kit] 1 inh IH DAILY 04/06/19 [History] Lisinopril 5 mg PO DAILY 04/06/19 [History] Cholecalciferol (Vitamin D3) [Vitamin D3] 2,000 units PO DAILY 12/09/19 [History] Levothyroxine Sodium [Levo-T] 125 mcg PO DAILY 12/09/19 [History] Nystatin 1 applic TD Q8H PRN 12/09/19 [History] Topiramate 12.5 mg PO BEDTIME 12/09/19 [History] LORazepam [Lorazepam] 0.5 tab PO DAILY 09/05/20 [History] Magnesium Hydroxide [Milk of Magnesia] 1,200 mg PO ASDIRECTED PRN 09/05/20 [History] Mirtazapine 1 tab PO BEDTIME 09/05/20 [History] Bisacodyl [Gentle Laxative] 1 unit RC ASDIRECTED PRN 04/11/21 [History] Glycerin [Laxative Suppository] 2.1 gram RC ASDIRECTED PRN 04/11/21 [History] Na Phos,M-B/Na Phos,DI-B [Fleet Enema] 118 ml RC ASDIRECTED PRN 04/11/21 [History] polyethylene glycoL 3350 [Miralax] 17 gm PO Q8H PRN 04/11/21 [History] Past Medical History HEENT History: Reports: Hard of Hearing, Impaired Vision Cardiovascular History: Reports: Heart Failure, Hypertension, SOB on Exertion Respiratory History: Reports: COPD, Pneumonia, Recurrent, SOB Gastrointestinal History: Reports: Chronic Constipation, GERD Genitourinary History: Reports: Renal Calculus, Urinary Incontinence, UTI, Recurrent HAND II THERMAL 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 History: Reports: Musculoskeletal History: Reports: Osteoarthritis Neurological History: Reports: Alzheimers Disease, Migraines, Other (See Below) Other Neuro History: dementia Psychiatric History: Reports: Anxiety, Dementia Endocrine/Metabolic History: Reports: Hypothyroidism Other Endocrine/Metabolic History: thyroid med Hematologic History: Reports: None Immunologic History: Reports: None Oncologic (Cancer) History: Reports: None Dermatologic History: Reports: Other (See Below) Other Dermatologic History: dermatitis - Infectious Disease History Infectious Disease History: Reports: Chicken Pox - Past Surgical History HEENT Surgical History: Reports: Other (See Below) Respiratory Surgical History: Reports: None GI Surgical History: Reports: Appendectomy, Cholecystectomy, Colonoscopy Female Surgical History: Reports: Hysterectomy, Tubal Ligation Neurological Surgical History: Reports: None Musculoskeletal Surgical History: Reports: Knee Replacement, Shoulder Surgery, Other (See Below) Other Musculoskeletal Surgeries/Procedures:: left ankle surgery Dermatological Surgical History: Reports: None Social & Family History - Family History Family Medical History: No Pertinent Family History - Caffeine Use Caffeine Use: Reports: Coffee - Living Situation & Occupation Living situation: Reports: Assisted Living Occupation: Retired H&P Review of Systems - Review of Systems: Review Of Systems: Unable To Obtain Reason Not Obtained: lethargic, dementia Exam - Exam Exam: See Below - Vital Signs Vital Signs: Last Vital Signs Temp 35.8 C L 04/11/21 19:55 Pulse 78 04/11/21 19:55 Resp 20 04/11/21 19:55 BP 108/78 04/11/21 19:55 Pulse Ox 97 04/11/21 19:55 Weight: 60.146 kg - Exam Physical Exam Comments:: General: Lethargic, uncooperative, combative, no acute distress HEENT: Unable to examine as the patient was combative Lungs: Clear to auscultation bilaterally without crackle or wheeze CV: Regular rate and rhythm without loud murmur rub or gallop Ext: No pitting edema noted Neuro: Lethargic, CN III -VII, XI, XII grossly intact, moves all extremities without any significant focal deficit appreciated - Patient Data Lab Results Last 24 hrs: Laboratory Results - last 24 hr 04/11/21 04/11/21 04/11/21 Range/Units 15:55 15:55 15:55 WBC 17.2 H D (4.0-11.0) K/uL RBC 5.19 (3.80-5.80) M/uL Hgb 15.6 (11.5-16.5) g/dL Hct 49.3 H (37.0-47.0) % MCV 95 (76-96) fL MCH 30.1 (27.0-32.0) pg MCHC 31.6 (31.0-35.0) g/dL RDW 13.6 (11.0-16.0) % Plt Count 214 (150-500) K/uL MPV 10.1 H (6.0-10.0) fL Neut % (Auto) 96.2 H (45.0-70.0) % Lymph % (Auto) 2.4 L (20.0-40.0) % [place] % (Auto) 1.2 L (3.0-10.0) % Eos % (Auto) 0.0 L (1.0-5.0) % Baso % (Auto) 0.2 (0.0-0.5) % Neut # (Auto) 16.50 H (2.00-7.50) K/uL Lymph # (Auto) 0.41 L (1.50-4.00) K/uL [place] # (Auto) 0.21 (0.20-0.80) K/uL Eos # (Auto) 0.00 L (0.04-0.40) K/uL Baso # (Auto) 0.03 (0.02-0.10) K/uL D-Dimer, Quantitative 3260 H (0-400) ng/mL Sodium 144 (136-145) mmol/L Potassium 3.9 D (3.5-5.1) mmol/L Chloride 105 (98-107) mmol/L Carbon Dioxide 24.6 D (21.0-32.0) mmol/L Anion Gap 18.3 H (5.0-15.0) mmol/L BUN 23 D (8-26) mg/dL Creatinine 1.12 H (0.55-1.02) mg/dL Est Cr Clr Drug Dosing TNP Estimated GFR (MDRD) 47 L (>60) MLS/MIN BUN/Creatinine Ratio 20.5 (6-25) Glucose 178 H D (74-100) mg/dL Calcium 9.4 (8.5-10.1) mg/dL Total Bilirubin 1.1 H D (0.0-1.0) mg/dL AST 13 L (15-37) U/L ALT 12 (12-78) U/L Alkaline Phosphatase 82 (46-116) U/L Troponin I (0.000-0.060) ng/mL B-Natriuretic Peptide (0-450) pg/mL Total Protein 7.5 (6.4-8.2) g/dL Albumin 3.6 (3.4-5.0) g/dL Globulin 3.9 (2.2-4.2) g/dL Albumin/Globulin Ratio 0.9 (0.8-2.0) SARS-CoV-2 RNA (PHILIP) (NEGATIVE) 04/11/21 04/11/21 Range/Units 15:55 16:31 WBC (4.0-11.0) K/uL RBC (3.80-5.80) M/uL Hgb (11.5-16.5) g/dL Hct (37.0-47.0) % MCV (76-96) fL MCH (27.0-32.0) pg MCHC (31.0-35.0) g/dL RDW (11.0-16.0) % Plt Count (150-500) K/uL MPV (6.0-10.0) fL Neut % (Auto) (45.0-70.0) % Lymph % (Auto) (20.0-40.0) % [place] % (Auto) (3.0-10.0) % Eos % (Auto) (1.0-5.0) % Baso % (Auto) (0.0-0.5) % Neut # (Auto) (2.00-7.50) K/uL Lymph # (Auto) (1.50-4.00) K/uL [place] # (Auto) (0.20-0.80) K/uL Eos # (Auto) (0.04-0.40) K/uL Baso # (Auto) (0.02-0.10) K/uL D-Dimer, Quantitative (0-400) ng/mL Sodium (136-145) mmol/L Potassium (3.5-5.1) mmol/L Chloride (98-107) mmol/L Carbon Dioxide (21.0-32.0) mmol/L Anion Gap (5.0-15.0) mmol/L BUN (8-26) mg/dL Creatinine (0.55-1.02) mg/dL Est Cr Clr Drug Dosing Estimated GFR (MDRD) (>60) MLS/MIN BUN/Creatinine Ratio (6-25) Glucose (74-100) mg/dL Calcium (8.5-10.1) mg/dL Total Bilirubin (0.0-1.0) mg/dL AST (15-37) U/L ALT (12-78) U/L Alkaline Phosphatase (46-116) U/L Troponin I < 0.017 (0.000-0.060) ng/mL B-Natriuretic Peptide 492 H D (0-450) pg/mL Total Protein (6.4-8.2) g/dL Albumin (3.4-5.0) g/dL Globulin (2.2-4.2) g/dL Albumin/Globulin Ratio (0.8-2.0) SARS-CoV-2 RNA (PHILIP) Negative (NEGATIVE) Result Diagrams: 04/11/21 15:55 04/11/21 15:55 Sepsis Event Note - Evaluation Sepsis Screening Result: Possible Sepsis Risk - Focused Exam Vital Signs: Vital Signs Temp Pulse Resp BP Pulse Ox 04/11/21 19:55 35.8 C L 78 20 108/78 97 04/11/21 18:21 35.9 C L 94 20 92/63 96 04/11/21 15:34 37.9 C 130 H 26 H 152/98 H 98 *Q Meaningful Use (ADM) - VTE *Q VTE Criteria *Q: 01 Problem List Initiated/Reviewed/Updated: Yes Orders Last 24hrs: Active Orders 24 hr Category Date Time Status Oxygen Therapy [RC] PRN Care 04/11/21 17:31 Active Up With Assistance [RC] ASDIRECTED Care 04/11/21 17:30 Active Regular Diet [DIET] Diet 04/12/21 Breakfast Ordered Chest 1V Frontal [CR] Stat Exams 04/11/21 15:46 Taken BASIC METABOLIC PANEL,BMP [CHEM] Urgent Lab 04/12/21 17:30 Ordered CBC WITH AUTO DIFF [HEME] Urgent Lab 04/12/21 17:30 Ordered CULTURE MRSA SURVEY [RM] Stat Lab 04/11/21 17:25 Ordered TSH ULTRASENSITIVE [CHEM] Urgent Lab 04/12/21 17:38 Ordered Azithromycin [Zithromax] 500 mg Med 04/11/21 17:45 Active Sodium Chloride 0.9% [Normal Saline] 100 ml IV DAILY Bisacodyl [Gentle Laxative] Med 04/11/21 17:25 Active 1 unit RC ASDIRECTED PRN Enoxaparin [Lovenox] Med 04/11/21 19:49 Once 60 mg SUBCUT ONETIME ONE Enoxaparin [Lovenox] Med 04/12/21 09:00 Ordered 60 mg SUBCUT Q12H Fluticasone/Vilanterol Med 04/12/21 08:00 Active 1 inh IH DAILY Glycerin [Laxative Suppository] Med 04/11/21 17:25 Active 2.1 gram ASDIRECTED PRN Haloperidol Lactate [Haldol] Med 04/11/21 19:50 Ordered 2 mg IVPUSH ONETIME PRN LORazepam [Lorazepam] Med 04/12/21 08:00 Active 0.5 tab PO DAILY Levothyroxine Sodium [Levo-T] Med 04/12/21 08:00 Active 125 mcg PO DAILY Lisinopril [Lisinopril] Med 04/12/21 08:00 Active 5 mg PO DAILY Sodium Chloride 0.9% @ 75 MLS/HR(1000ml) Med 04/11/21 20:00 Ordered Sodium Chloride 0.9% [Normal Saline] 1,000 ml IV ASDIRECTED Sodium Chloride 0.9% [Normal Saline] 1,000 ml Med 04/11/21 17:45 Active IV ASDIRECTED Sodium Chloride 0.9% [Saline Flush] Med 04/11/21 17:30 Active 10 ml FLUSH ASDIRECTED PRN Topiramate [Topiramate] Med 04/11/21 20:00 Active 12.5 mg PO BEDTIME cefTRIAXone [Rocephin] 1 gm Med 04/11/21 17:30 Active Sodium Chloride 0.9% [Normal Saline] 50 ml IV Q24H polyethylene glycoL 3350 [Miralax] Med 04/11/21 17:25 Active 17 gm PO Q8H PRN Peripheral IV Insertion Adult [OM.PC] Urgent Oth 04/11/21 17:30 Ordered Code Status [Resuscitation Status] Routine Resus Stat 04/11/21 19:52 Ordered Medication Orders Enoxaparin Sodium (Enoxaparin 60 Mg/0.6 Ml Syringe) 60 mg SUBCUT ONETIME ONE Stop: 04/11/21 19:50 Enoxaparin Sodium (Enoxaparin 60 Mg/0.6 Ml Syringe) 60 mg SUBCUT Q12H VIRY Haloperidol Lactate (Haloperidol Lactate 5 Mg/Ml Sdv) 2 mg IVPUSH ONETIME PRN PRN Reason: Agitation Ceftriaxone Sodium 1 gm/ (Sodium Chloride) 50 mls @ 200 mls/hr IV Q24H VIRY Azithromycin 500 mg/ Sodium (Chloride) 100 mls @ 100 mls/hr IV DAILY VIRY Last Admin: 04/11/21 19:49 Dose: 100 mls/hr Documented by: JEAN PIERREAJES Sodium Chloride (Normal Saline) 1,000 mls @ 125 mls/hr IV ASDIRECTED VIRY Last Admin: 04/11/21 19:48 Dose: 100 mls/hr Documented by: NIHAJES Sodium Chloride (Normal Saline) 1,000 mls @ 75 mls/hr IV ASDIRECTED [facility] Non-Formulary Medication (Fluticasone/Vilanterol) 1 inh IH DAILY [facility] Non-Formulary Medication (Glycerin [Laxative Suppository]) 2.1 gram RC ASDIRECTED PRN PRN Reason: Constipation Non-Formulary Medication (Bisacodyl [Gentle Laxative]) 1 unit RC ASDIRECTED PRN PRN Reason: Constipation Non-Formulary Medication (Levothyroxine Sodium [Levo-T]) 125 mcg PO DAILY VIRY Non-Formulary Medication (Lisinopril [Lisinopril]) 5 mg PO DAILY VIRY Non-Formulary Medication (Lorazepam [Lorazepam]) 0.5 tab PO DAILY VIRY Non-Formulary Medication (Polyethylene Glycol 3350 [Miralax]) 17 gm PO Q8H PRN PRN Reason: Constipation Non-Formulary Medication (Topiramate [Topiramate]) 12.5 mg PO BEDTIME VIRY Sodium Chloride (Sodium Chloride 0.9% 10 Ml Syringe) 10 ml FLUSH ASDIRECTED PRN PRN Reason: Keep Vein Open Assessment/Plan Comment:: Recent lab: Reviewed see EMR for details Xray: Per my interpretation showed mild pulmonary vascular congestion Assessment and Plan: 1. Lethargy-secondary to illness. Continue to monitor 2. Pneumonia-on Rocephin and azithromycin 3. Elevated [id number] hypoxemia, tachycardia, inability to get a good history from the patient will empirically treat with Lovenox. Hopefully CTA of chest can be performed tomorrow 4. Acute hypoxemic respiratory failure-continue supplemental oxygen. Secondary to pneumonia 5. COPD-as needed duo nebs 6. Hypothyroidism-stable on Synthroid 7. Hypertension-stable continue lisinopril 8. Leukocytosis-secondary to infection 9. Renal insufficiency-no old BMP to compare 10. DVT prophylaxis-fully anticoagulated on Lovenox 11. CODE STATUS DNR/DNI per bedside nurse based on documentation sent from the [facility] Chart review was performed as well as evaluation of the patient via video. Thank you for involving ehospitalist. Please contact [phone] if further assistance is needed.
--- NOTE | 2021-04-11 21:46 | ER ---
HISTORY OF PRESENT ILLNESS: An 81-year-old [facility] resident, who was brought over to the ER with complaints of declining in the last few days. She becomes mostly unresponsive today after taking a nap. They have noted shortness of breath and some foaming or drooling in the mouth. The patient has been losing weight recently and nursing staff tells me that she has had good days and bad days lately, but she has overall been slowly declining. She is coughing up some phlegm occasionally, but not frequently, but everything today took a turn for the worse. PAST MEDICAL HISTORY: Includes severe COPD, CHF, history of pneumonia, weakness, dementia. OBJECTIVE: GENERAL APPEARANCE: The patient is sleeping. She is mildly short of breath. She does have some whitish phlegm around her mouth. VITAL SIGNS: Initially show a temperature of 100.2, pulse 130, blood pressure 152/98, respirations 26, O2 sats are 98% on 2 L. She was hypoxic on room air. She came over on 3 L and she was at 100%. She seems to be balancing well at 2 L per nasal cannula. HEENT: Oral mucous membranes are dry. LUNG: Reveals scattered rhonchi. I do not hear any wheezes. CARDIAC: Heart sounds distinct. No murmurs noted. ABDOMEN: Soft, protuberant, nontender. SKIN: Warm and dry. LABORATORY DATA: Labs [place] [address] , neutrophils are also elevated. D-dimers up at 3260. Comprehensive metabolic panel shows her electrolytes are normal. Creatinine is 1.12, BUN of 23, GFR is 47. In looking at her records, the GFR was 57 on March 26. Glucose 178. Troponin is negative. BNP is 492. COVID is negative. Chest x-ray shows mild congestion in both bases. DIAGNOSES: 1. Pneumonia. 2. Dehydration. 3. Elevated D-dimer with some concern about pulmonary embolism. TREATMENT PLAN: I discussed doing a chest CT with Radiology and they feel that she would not do well. She is basically nonresponsive. She would need to hold her breath plus contrast would be needed, which is not recommended. At this point, I had a conversation with the patient's daughter. I will admit her for pneumonia, dehydration, and elevated D- dimer. We will start her on Rocephin and Zithromax and consult with the hospitalist for further direction on how to address her elevated D-dimer. CRS/MODL /[id number]
[2021-04-11] MEDS ORDERED: Albuterol/Ipratropium 3.0-0.5 MG/3 ML Neb Soln NEB PRN (23:26)
[2021-04-12] MEDS ORDERED: Non-Formulary Medication 1 Each (Fluticasone/Vilanterol 1 EACH Each) IH SCH (08:00)
[2021-04-12] MEDS ORDERED: LEVOTHYROXINE SODIUM 100 MCG PO SCH (08:00)
[2021-04-12] MEDS ORDERED: LORAZEPAM 0.5 MG PO SCH (08:00)
[2021-04-12] MEDS ORDERED: LISINOPRIL 5 MG PO SCH (08:00)
--- NOTE | 2021-04-12 08:37 | ADMIT ---
This 81-year-old lady was admitted through the emergency room for pneumonia, dehydration, and an elevated D-dimer. I spoke with Radiology and they felt that due to her being unresponsive, it would not go well to get a CTA of the chest to rule out a PE, so we will hold off on that for now. The patient will be started on Zithromax and Rocephin IV. I also consulted the hospitalist service and they suggested that we start to anticoagulate her. This led to a consult with the pharmacist and they suggested either Lovenox or heparin. We will go with Lovenox. The patient will continue her own medications as tolerated and we will give her some IV fluids to help with hydration issues. The patient has become more alert since first arriving in the emergency room. She is resistive at times and her shortness of breath seems like it has improved as well. We will monitor the patient and with the assistance of the hospitalist service, hopefully, we can get a CT of the chest tomorrow to rule out the PE. CRS/MODL /[id number]
[2021-04-12] MEDS ORDERED: Enoxaparin 60 MG/0.6 ML Syringe SUBCUT SCH (09:00)
[2021-04-12] MEDS ORDERED: LORazepam 0.5 MG Tab ONE (09:02)
[2021-04-12 13:04] VITALS: BP 125/84
[2021-04-12 13:08] VITALS: PULSE 73
[2021-04-12] MEDS ORDERED: Warfarin 5 MG Tab PO ONE (15:01)
[2021-04-12] MEDS ORDERED: cefTRIAXone 1 GM Vial ONE (15:25)
--- NOTE | 2021-04-12 15:28 | DISCH ---
An 81-year-old lady who was admitted through the emergency room yesterday with pneumonia, dehydration, and an elevated D-dimer. Her condition has improved significantly since starting on antibiotics and IV fluids. The patient has become somewhat rebellious at times, ripping out her IV a couple of times, but she states that she is feeling much better. Vitals have been good today. The patient's O2 sats have remained well and she has been weaned off oxygen with her O2 sats staying in the low to mid 90s. At this point, [facility] I will start her on Coumadin 5 mg a day. She is on Lovenox b.i.d. because of the elevated D-dimer. I have talked with Radiology a couple of times and they do not feel that we can get an accurate CT of the chest to rule out a PE. I will have the patient's primary care provider address this situation tomorrow of whether they want to get a V/Q scan or keep the patient on anticoagulation for a while. We will keep her on Rocephin 1 g IM as well. The patient's labs done today show that her white count dropped from 17 yesterday to 13.7 today, neutrophils also dropped some, kidney function improved slightly, and a TSH was done which was normal. CRS/MODL /[id number]
--- NOTE | 2021-04-13 09:22 | CR ---
Date of Service: 04/11/21 Clinical Data: SOB AP CHEST: Comparison is made to a prior exam dated 09/05/20. The heart size is stable. The lungs are clear. No pneumothorax. No pleural effusions. No evidence of acute intrathoracic disease. [id number] [facility]
--- NOTE | 2021-04-13 12:33 | PN ---
DATE OF VISIT: 04/12/2021 SUBJECTIVE: An 81-year-old lady admitted yesterday through the ER with diagnosis of pneumonia, dehydration, and an elevated D-dimer. The patient's condition has improved overnight. She is awake much of the time now. The patient was combative at times and was actually given a dose of Haldol during the night on one occasion. Her appetite has not been very good yet and she did pull out one of her IVs. The IV that is in now is protected with aggressive Coban bandaging. The patient states that she feels okay today. She denies any pain or trouble breathing. VITAL SIGNS: Show a blood pressure of 104/58, temp is 97.6, O2 sats are 98% on 2 L, pulse of 72. OBJECTIVE: GENERAL APPEARANCE: The patient is awake and alert. She is talking and answering questions, but it is a little hard to understand her. She does have a slight rattle on exhale, but it appears to be from phlegm in the back of the throat. Nursing staff states that this is normal for her. LUNGS: Today, reveal minimal rhonchi. The patient is not able to take much of the deep breath. CARDIAC: Heart sounds are distinct without murmurs. SKIN: Warm and dry. ASSESSMENT AND PLAN: We will proceed with a chest CT to rule out pulmonary embolism today. The patient will continue on both Zithromax and Rocephin, and we will continue her on fluids as well and continue to monitor her. If the chest CT comes back negative for pulmonary embolism, we could potentially discharge the patient either later today or tomorrow. CECILIO/MODL /[id number]
== END 2021-04-12 16:10 ==
LOC: LB.ED 15:15 → LB.MS 17:22
PROVIDERS: ADMIT Physician Assistant; ATTEND Physician Assistant
DX: J18.9 Pneumonia, unspecified organism (principal); R09.02 Hypoxemia; E86.0 Dehydration; R79.1 Abnormal coagulation profile; F03.90 Unspecified dementia, unspecified severity, without behavioral disturbance, psychotic disturbance, mood disturbance, and anxiety; I11.0 Hypertensive heart disease with heart failure; E03.9 Hypothyroidism, unspecified; J44.9 Chronic obstructive pulmonary disease, unspecified; Z88.0 Allergy status to penicillin; Z88.2 Allergy status to sulfonamides; Z91.018 Allergy to other foods; Z79.899 Other long term (current) drug therapy; Z79.890 Hormone replacement therapy; Z90.49 Acquired absence of other specified parts of digestive tract; Z98.890 Other specified postprocedural states; Z20.822 Contact with and (suspected) exposure to COVID-19; Z88.8 Allergy status to other drugs, medicaments and biological substances
CPT/HCPCS: 36415; 71045; 80048; 80053; 83880; 84443; 84484; 85025; 85379; 93005; 96365; 96372; 96375; 96376; 99285-25; A9270-GY; G0378; J0456; J0696; J1630; J1650; J7030; U0002